=== PATIENT | female | born 1940 | race Caucasian/White ===

== ENCOUNTER 2018-07-31 21:05 | Emergency (ER) | payer BC, MEDICARE ==
[~2018-07-31] VITALS: Ht 157.5 cm; Wt 49.9 kg
[2018-07-31 22:38] VITALS: BP 143/66
== END 2018-07-31 22:38 | disposition home or self-care (01) ==
LOC: M.ERS 21:05
DX: R04.0 Epistaxis (principal)

== ENCOUNTER 2019-01-30 19:36 | Emergency (ER) | payer MEDICARE, BC ==
[~2019-01-30] VITALS: Ht 157.5 cm; Wt 51.3 kg
[2019-01-30] MEDS ORDERED: LISINOPRIL10 MG PO (19:45)
[2019-01-30] MEDS ORDERED: ZOCOR20 MG PO (19:57)
[2019-01-30] MEDS ORDERED: TRICOR145 MG PO (19:58)
[2019-01-30] MEDS ORDERED: FLONASE 0.05%50 MCG NASAL (19:59)
[2019-01-30 20:16] LABS: ABSOLUTE BASOPHILS 0.1 thou/uL (0.0-0.2); ABSOLUTE EOSINOPHILS 0.1 thou/uL (0.0-0.7); ABSOLUTE LYMPHOCYTES 2.1 thou/uL (0.8-5.3); ABSOLUTE MONOCYTES 0.8 thou/uL (0.0-1.2); ABSOLUTE NEUTROPHILS 7.6 thou/uL (1.6-8.1); BASOPHILS 0.5 %; EOSINOPHILS 1.1 %; HEMATOCRIT 40.7 % (37.0-47.0); HEMOGLOBIN 13.8 gm/dL (12.0-15.0); LYMPHOCYTES 19.9 %; MCH 30.1 pg (26.0-34.0); MCHC 33.9 g/dL (28.0-37.0); MCV 88.9 fL (80.0-100.0); MONOCYTES 7.3 %; MPV 7.8 fl. (7.2-11.1); NUCLEATED RBCS 0 /100WBC; PLATELET COUNT* 304 thou/uL (150-400); POLYS 71.2 %; RBC 4.58 mil/uL (4.20-5.00); RDW-CV 13.5 % (10.5-14.5); WBC 10.6 thou/uL (4.0-11.0)
[2019-01-30 20:21] LABS: ANION GAP 11 mmol/L (7-16); BUN 16 mg/dL (7-18); CALCIUM 9.1 mg/dL (8.5-10.1); CHLORIDE 93 mmol/L (98-107); CO2 24 mmol/L (21-32); CREATININE 0.6 mg/dL (0.6-1.3); GLUCOSE 106 mg/dL (70-99); POTASSIUM 4.6 mmol/L (3.5-5.1); SODIUM 128 mmol/L (136-145)
[2019-01-30 20:32] LABS: ALKALINE PHOSPHATASE 78 U/L (46-116); NT-PRO BRAIN NAT PEPTIDE 200 pg/mL (<300); SGOT 28 U/L (15-37); SGPT 25 U/L (30-65); TOTAL BILIRUBIN 0.6 mg/dL (<0.1-1.0); TOTAL PROTEIN 7.5 g/dL (6.4-8.2); TROPONIN-I LEVEL <0.06 ng/mL (<0.06)
[2019-01-30] MEDS ORDERED: PREDNISONE 20 M20 M1 PO (21:02)
[2019-01-30] MEDS ORDERED: PROMETH-CODEIN 65 ML PO (21:02)
[2019-01-30] MEDS ORDERED: ZPAK PO (21:02)
[2019-01-30 21:21] VITALS: BP 132/69
--- NOTE | 2019-01-31 10:55 | EKG ---
[place] [address] ELECTROCARDIOGRAM REPORT Name: STACIE SUÁREZ [id number] Admission: 01/30/19 Attend Phys: Discharge: 01/30/19 Date of : 38 Report #: [id number] THIS REPORT FOR: //name// [facility] ED Test Date: 2019-01-30 Test Time: 19:54:04 Pat Name: STACIE SUÁREZ Department: Room: Gender: F Benefit Director: GEO : 1940 Requested By: Murali Christianson Order Number: [id number] MD: Duran Garcia Measurements Intervals [place] Rate: 56 P: 68 [place]: 154 QRS: 50 QRSD: 128 T: 59 QT: 435 QTc: 420 Interpretive Statements Sinus bradycardia Right bundle branch block No previous ECG available for comparison Electronically Signed On 01-31-2019 10:54:45 CDT by Duran Garcia [email or web address] <ELECTRONICALLY SIGNED> By: Duran Garcia MD, [facility] 01/31/19 1054 53 53 Duran Garcia MD, FACC /EPI
== END 2019-01-30 21:31 | disposition home or self-care (01) ==
LOC: M.ERS 19:36
PROVIDERS: Family Medicine
DX: J40 Bronchitis, not specified as acute or chronic (principal)

== ENCOUNTER 2019-09-17 19:42 | Inpatient (IN) | payer MEDICARE, BC ==
[~2019-09-17] VITALS: Ht 157.5 cm; Wt 51.1 kg
[~2019-09-17 19:42] MED LIST: FLONASE 0.05%50 MCG NASAL; LISINOPRIL10 MG PO; PREDNISONE 20 M20 M1 PO; PROMETH-CODEIN 65 ML PO; TRICOR145 MG PO; ZOCOR20 MG PO; ZPAK PO
[2019-09-17 19:48] VITALS: BP 134/46
[2019-09-17] MEDS ORDERED: TESSALON PERLE100 M1 PO (19:55)
[2019-09-17 20:12] LABS: HEMATOCRIT 35.4 % (37.0-47.0); HEMOGLOBIN 11.8 gm/dL (12.0-15.0); MCH 29.7 pg (26.0-34.0); MCHC 33.3 g/dL (28.0-37.0); MCV 89.2 fL (80.0-100.0); MPV 8.1 fl. (7.2-11.1); NUCLEATED RBCS 0 /100WBC; PLATELET COUNT* 288 thou/uL (150-400); RBC 3.97 mil/uL (4.20-5.00); RDW-CV 14.1 % (10.5-14.5); WBC 17.1 thou/uL (4.0-11.0)
[2019-09-17 20:16] LABS: INR 1.1; PROTIME 11.4 Seconds (9.20-11.50)
[2019-09-17 20:17] LABS: CALCIUM 8.2 mg/dL (8.5-10.1); CREATININE 0.8 mg/dL (0.6-1.3); POTASSIUM 3.9 mmol/L (3.5-5.1)
[2019-09-17 20:28] LABS: ALBUMIN 3.3 g/dL (3.4-5.0); TOTAL BILIRUBIN 0.4 mg/dL (<0.1-1.0); TOTAL PROTEIN 6.6 g/dL (6.4-8.2)
[2019-09-17 20:32] LABS: INFLUENZA A ANTIGEN Negative (Negative); INFLUENZA B ANTIGEN Negative (Negative)
[2019-09-17 20:50] LABS: ABSOLUTE LYMPHOCYTES 1.2 thou/uL (0.8-5.3); ABSOLUTE MONOCYTES 0.9 thou/uL (0.0-1.2)
[2019-09-17 20:51] LABS: PLATELET ESTIMATE ADEQUATE
[2019-09-17 22:00] LABS: URINE BILIRUBIN NEGATIVE (Negative); URINE BLOOD 1+ (Negative); URINE CLARITY CLEAR; URINE COLOR YELLOW; URINE GLUCOSE-RANDOM NEGATIVE (Negative); URINE KETONES NEGATIVE (Negative); URINE LEUKOCYTES-REFLEX 1+ (Negative); URINE NITRITE-REFLEX NEGATIVE (Negative); URINE PROTEIN NEGATIVE (Negative); URINE SPECIFIC GRAVITY 1.015 (1.005-1.030); URINE UROBILINOGEN 0.2 E.U./dl (0.2-1.0)
[2019-09-17 22:16] LABS: BACTERIA-REFLEX >30 Many /HPF (None Seen); CASTS None Seen /LPF (None Seen); CRYSTALS None Seen /LPF (None Seen); MUCUS 4-6 Moderate strn/LPF (None Seen); SQUAMOUS 4-10 Moderate /LPF (0-3); URINE RBC 3-10 Few /HPF (0-2); URINE WBC-REFLEX 6-15 Few /HPF (0-5); WBC CLUMPS Few (None Seen)
[2019-09-18] VITALS (17 sets, daily range): BP systolic 93–129; BP diastolic 38–58
[2019-09-18 08:20] LABS: HEMATOCRIT 33.7 % (37.0-47.0); HEMOGLOBIN 11.3 gm/dL (12.0-15.0); MCH 30.2 pg (26.0-34.0); MCHC 33.5 g/dL (28.0-37.0); MCV 90.1 fL (80.0-100.0); MPV 8.2 fl. (7.2-11.1); RBC 3.74 mil/uL (4.20-5.00); RDW-CV 14.6 % (10.5-14.5); WBC 16.5 thou/uL (4.0-11.0)
[2019-09-18 08:25] LABS: CALCIUM 7.3 mg/dL (8.5-10.1); CREATININE 0.7 mg/dL (0.6-1.3); POTASSIUM 3.5 mmol/L (3.5-5.1)
--- NOTE | 2019-09-18 12:21 | EKG ---
[place] [address] ELECTROCARDIOGRAM REPORT Name: STACIE SUÁREZ Room: [address] IN [facility].#: [id number] Admission: 09/17/19 Attend Phys: Sallie Almanza, Discharge: Date of : 38 Date of Service: 09/17/191950 Report #: [id number] THIS REPORT FOR: //name// [facility] ED Test Date: 2019-09-17 Test Time: 19:51:43 Pat Name: STACIE SUÁREZ Department: Room: [facility] Gender: F Title Processor: MD : 1940 Requested By: Karol Jorgensen Order Number: [id number] MD: Duran Garcia Measurements Intervals [place] Rate: 93 P: 78 CT: 135 QRS: 53 QRSD: 121 T: 57 QT: 331 QTc: 412 Interpretive Statements Sinus rhythm Right bundle branch block Compared to ECG 01/30/2019 19:54:04 Sinus bradycardia no longer present Electronically Signed On 09-18-2019 12:20:18 CONVEYOR CONSOLE OPERATOR by Duran Garcia [email or web address] <ELECTRONICALLY SIGNED> By: Duran Garcia MD, FAC 09/18/19 1220 50 50 Duran Garcia MD, [facility] /EPI
[2019-09-19 00:23] VITALS: BP 115/53
[2019-09-19 04:00] VITALS: BP 118/48
[2019-09-19 04:07] LABS: GLYCOHEMOGLOBIN (HGB A1C) 5.7 % (4.8-5.6)
[2019-09-19 05:26] LABS: HEMATOCRIT 29.8 % (37.0-47.0); HEMOGLOBIN 9.9 gm/dL (12.0-15.0); MCH 29.7 pg (26.0-34.0); MCHC 33.4 g/dL (28.0-37.0); MCV 88.9 fL (80.0-100.0); MPV 8.8 fl. (7.2-11.1); RBC 3.35 mil/uL (4.20-5.00); RDW-CV 14.3 % (10.5-14.5); WBC 13.4 thou/uL (4.0-11.0)
[2019-09-19 05:47] LABS: ALBUMIN 2.5 g/dL (3.4-5.0); CALCIUM 7.9 mg/dL (8.5-10.1); CREATININE 0.6 mg/dL (0.6-1.3); MAGNESIUM 1.9 mg/dL (1.8-2.4); POTASSIUM 3.6 mmol/L (3.5-5.1); TOTAL BILIRUBIN 0.2 mg/dL (<0.1-1.0); TOTAL PROTEIN 5.9 g/dL (6.4-8.2)
[2019-09-19 08:00] VITALS: BP 141/57
[2019-09-19 12:09] VITALS: BP 132/57
[2019-09-19 16:38] LABS: HEMATOCRIT 30.9 % (37.0-47.0); HEMOGLOBIN 10.4 gm/dL (12.0-15.0); MCH 29.6 pg (26.0-34.0); MCHC 33.5 g/dL (28.0-37.0); MCV 88.2 fL (80.0-100.0); MPV 8.4 fl. (7.2-11.1); RBC 3.51 mil/uL (4.20-5.00); RDW-CV 14.2 % (10.5-14.5); WBC 13.5 thou/uL (4.0-11.0)
[2019-09-19 16:43] LABS: CALCIUM 8.4 mg/dL (8.5-10.1); CREATININE 0.5 mg/dL (0.6-1.3)
[2019-09-19 16:48] LABS: ALBUMIN 2.6 g/dL (3.4-5.0); TOTAL BILIRUBIN 0.2 mg/dL (<0.1-1.0); TOTAL PROTEIN 6.2 g/dL (6.4-8.2)
[2019-09-19 16:52] LABS: APTT 33.4 Seconds (25.0-31.3); INR 1.1; PROTIME 10.9 Seconds (9.20-11.50)
[2019-09-19 17:26] VITALS: BP 123/58
[2019-09-19 20:00] VITALS: BP 124/48
[2019-09-19 21:28] LABS: CHOLESTEROL 139 mg/dL (<200); HDL CHOLESTEROL 42 mg/dL (>40); LDL CHOLESTEROL 78 mg/dL (<100); SERUM ASSESSMENT Clear; TC:HDL 3.3 Ratio (Not establshd); TRIGLYCERIDE 97 mg/dL (<150); VLDL 19 mg/dL (<40)
[2019-09-20] VITALS: BP 132/62
[2019-09-20 04:00] VITALS: BP 129/52
[2019-09-20 05:34] LABS: HEMATOCRIT 30.4 % (37.0-47.0); HEMOGLOBIN 10.3 gm/dL (12.0-15.0); MCH 29.9 pg (26.0-34.0); MCHC 33.7 g/dL (28.0-37.0); MCV 88.5 fL (80.0-100.0); MPV 8.4 fl. (7.2-11.1); RBC 3.44 mil/uL (4.20-5.00); RDW-CV 14.5 % (10.5-14.5); WBC 12.3 thou/uL (4.0-11.0)
[2019-09-20 05:48] LABS: ALBUMIN 2.5 g/dL (3.4-5.0); CALCIUM 8.2 mg/dL (8.5-10.1); CREATININE 0.6 mg/dL (0.6-1.3); MAGNESIUM 2.1 mg/dL (1.8-2.4); POTASSIUM 4.1 mmol/L (3.5-5.1); TOTAL BILIRUBIN 0.1 mg/dL (<0.1-1.0); TOTAL PROTEIN 5.8 g/dL (6.4-8.2)
[2019-09-20 08:00] VITALS: BP 144/56
[2019-09-20 11:30] VITALS: BP 125/59
[2019-09-20 16:22] VITALS: BP 144/64
--- NOTE | 2019-09-20 16:32 | EKG ---
[place] [address] ELECTROCARDIOGRAM REPORT Name: STACIE SUÁREZ Room: [address] ADM IN .R.#: [id number] Admission: 09/17/19 Attend Phys: Sallie Almanza, Discharge: Date of : 38 Date of Service: 09/19/19 1639 Report #: [id number] THIS REPORT FOR: //name// [facility] Test Date: 2019-09-19 Test Time: 16:39:31 Pat Name: STACIE SUÁREZ Department: Room: [address] Gender: F Instrument Calibrator: DORIS : 1940 Requested By: Sallie Almanza Order Number: [id number] Merlyn MD: Duran Garcia Measurements Intervals [place] Rate: 69 P: 67 GA: 138 QRS: 48 QRSD: 120 T: 37 QT: 410 QTc: 440 Interpretive Statements Sinus rhythm IVCD, consider atypical RBBB Compared to ECG 09/17/2019 19:51:43 No significant changes Electronically Signed On 09-20-2019 16:31:37 SHEET CUTTING OPERATOR by Duran Garcia [email or web address] <ELECTRONICALLY SIGNED> By: Duran Garcia MD, FACC 09/20/19 1631 1639 1639 Duran Garcia MD, FAC /EPI
--- NOTE | 2019-09-20 16:37 | 2DMMODE ---
[place] [address] 2 D/M-MODE ECHOCARDIOGRAM Name: STACIE SUÁREZ KWAME Room: [address] IN [facility]#: [id number] Admission: 09/17/19 Attend Phys: Sallie Almanza, Discharge: Date of : 38 Date of Service: 09/20/19 1636 Report #: [id number] THIS REPORT FOR: cc: Becca Rogers Tonja K FNP Liston, Michael J. MD [facility] ~ APPROVED REPORT Study performed: 09/20/2019 12:58:11 EXAM: Comprehensive 2D, Doppler, and color-flow Echocardiogram Patient Location: In-Patient Room #: 201 Status: routine BSA: 1.54 HR: 79 bpm BP: 144/56 mmHg Rhythm: NSR Other Information Study Quality: Good Indications CVA/TIA Echo Enhancing Agent Indication: Rule out Shunt Agent(s) / Amount(s) Used: Agitated Saline 10 cc 2D Dimensions IVSd: 9.12 (7-11mm) LVOT Diam: 18.46 (18-24mm) LVDd: 41.87 mm PWd: 9.63 (7-11mm) Ascending Ao: 26.17 (22-36mm) LVDs: 24.84 (25-40mm) Aortic Root: 28.06 mm Volumes Left Atrial Volume (Systole) LA ESV Index: 31.80 mL/m2 Aortic Valve AoV Peak Elgin.: 1.55 m/s AO Peak Gr.: 9.64 mmHg LVOT Max P.59 mmHg AO Mean Gr.: 4.81 mmHg LVOT Mean P.83 [place] [address] 2 D/M-MODE ECHOCARDIOGRAM Name: STACIE SUÁREZ [facility] Room: [address] IN .R.#: [id number] Admission: 09/17/19 Attend Phys: Sallie Almanza, Discharge: Date of : 38 Date of Service: 09/20/19 1636 Report #: [id number] LVOT Max V: 1.28 m/s AO V2 VTI: 31.14 cm LVOT Mean V: 0.76 m/s CHICA (VTI): 2.25 cm2 LVOT V1 VTI: 26.18 cm Mitral Valve E/A Ratio: 1.14 MV Decel. Time: 207.19 ms MV E Max Elgin.: 1.07 m/s MV PHT: 60.09 ms MVA (PHT): 3.66 cm2 TDI E/Lateral E': 8.92 E/Medial E': 8.92 Medial E' Elgin.: 0.12 m/s Lateral E' Elgin.: 0.12 m/s Pulmonary Valve PV Peak Elgin.: 1.18 m/s PV Peak Gr.: 5.54 mmHg Tricuspid Valve RAP Estimate: 5.00 mmHg TR Peak Gr.: 24.62 mmHg RVSP: 29.00 mmHg PA Pressure: 29.00 mmHg Left Ventricle The left ventricle is normal size. There is normal LV segmental wall motion. There is normal left ventricular wall thickness. Left ventricular systolic function is normal. LVEF is 60-65%. Transmitral Doppler flow pattern suggests impaired LV relaxation. Right Ventricle The right ventricle is normal size. The right ventricular systolic function is normal. Atria The left atrium size is normal. The interatrial septum is intact with no evidence for an atrial septal defect. The right atrium size is normal. Aortic Valve The aortic valve is normal in structure. No aortic regurgitation is present. There is no aortic valvular stenosis. Mitral Valve There is mitral annular calcification. Trace mitral regurgitation. No evidence of mitral [place] [address] 2 D/M-MODE ECHOCARDIOGRAM Name: STACIE SUÁREZ [facility] Room: [address] IN .R.#: [id number] Admission: 09/17/19 Attend Phys: Sallie Almanza, Discharge: Date of : 38 Date of Service: 09/20/19 1636 Report #: [id number] Tricuspid Valve The tricuspid valve is normal in structure. Trace tricuspid regurgitation. No pulmonary hypertension. Pulmonic Valve The pulmonary valve is normal in structure. There is no pulmonic valvular regurgitation. Great Vessels The aortic root is normal in size. IVC is normal in size and collapses >50% with inspiration. Pericardium There is no pericardial effusion. <Conclusion> The left ventricle is normal size. There is normal left ventricular wall thickness. Left ventricular systolic function is normal. LVEF is 60-65%. Transmitral Doppler flow pattern suggests impaired LV relaxation. The interatrial septum is intact with no evidence for an atrial septal defect. Trace mitral regurgitation. Trace tricuspid regurgitation. No pulmonary hypertension. IVC is normal in size and collapses >50% with inspiration. <ELECTRONICALLY SIGNED> By: Barrett Gottlieb MD, FACC 09/20/19 1636 1636 1636 Barrett Gottlieb MD, FACC /INF
[2019-09-20 20:00] VITALS: BP 139/64
[2019-09-21 00:24] VITALS: BP 119/62
[2019-09-21 08:00] VITALS: BP 143/68
[2019-09-21 12:00] VITALS: BP 110/59
[2019-09-21 13:32] VITALS: BP 115/74
[2019-09-21 16:00] VITALS: BP 113/60
[2019-09-21 20:00] VITALS: BP 147/60
[2019-09-21 22:58] LABS: URINE BILIRUBIN NEGATIVE (Negative); URINE BLOOD NEGATIVE (Negative); URINE CLARITY CLEAR; URINE COLOR YELLOW; URINE GLUCOSE-RANDOM NEGATIVE (Negative); URINE KETONES NEGATIVE (Negative); URINE LEUKOCYTES NEGATIVE (Negative); URINE NITRITE NEGATIVE (Negative); URINE PROTEIN NEGATIVE (Negative); URINE SPECIFIC GRAVITY <= 1.005 (1.005-1.030); URINE UROBILINOGEN 0.2 E.U./dl (0.2-1.0)
[2019-09-22 00:14] VITALS: BP 133/67
[2019-09-22 04:49] VITALS: BP 124/59; BP 136/70
[2019-09-22 08:00] VITALS: BP 122/57
--- NOTE | 2019-09-22 08:56 | CON ---
[address] [address] CONSULTATION Name: STACIE SUÁREZ KWAME Room: [address] ADM IN M.R.#: [id number] Admission: 09/17/19 Attend Phys: Sallie Almanza MD Discharge: Date of : 38 Report #: [id number] THIS REPORT FOR: //name// cc: Becca Rogers Tonja K FNP ~ THIS REPORT FOR: //name// CC: Sallie Rogers DATE OF SERVICE: 09/21/2019 CARDIOLOGY CONSULTATION HISTORY OF PRESENT ILLNESS: The patient is a 78-year-old white female who I was asked to see in the hospital today after she had an episode of atrial fibrillation. The history is obtained from the patient as well as her family who is present. She has no previous history of heart disease. She stays fairly active. She has had no previous cardiac evaluation. She was admitted here to [facility] 4 days ago. She was brought to the hospital by family members. She has been coughing and running a fever. She felt weak. She was recently given Symbicort. Because of increasing shortness of breath, she was admitted. She was felt to have pneumonia. She was started on antibiotics. She subsequently developed confusion. She was found to have evidence of stroke. She was noted to have intermittent atrial fibrillation. I was asked to see her for further evaluation and treatment. PAST MEDICAL HISTORY: Otherwise, she has had no surgical procedures. She does have a history of hypertension and hyperlipidemia. MEDICATIONS: On admission consist of lisinopril, simvastatin, fenofibrate. ALLERGIES: SHE HAS AN ALLERGY TO ROCEPHIN AND FLU SHOTS AND IV CONTRAST. FAMILY HISTORY: Negative for heart disease. SOCIAL HISTORY: She is . She and her live in [place], [place]. Her is a patient of mine as well. She smokes half pack of cigarettes a day. No alcohol abuse. REVIEW OF SYSTEMS: She has had no history of stroke in the past. No history of asthma, liver disease, GI bleeding. She has had nosebleeds. No kidney disease. No cancer. No psychiatric illness. PHYSICAL EXAMINATION: [place] [address] CONSULTATION Name: STACIE SUÁREZ KWAME Room: [address] IN [facility]#: [id number] Admission: 09/17/19 Attend Phys: Sallie Almanza MD Discharge: Date of : 38 Report #: [id number] GENERAL: Revealed an elderly frail appearing female sitting in a chair. She appeared in no acute distress. VITAL SIGNS: She had a blood pressure 130/60, pulse is 120 and irregular and respirations nonlabored. She is afebrile. HEENT: She was anicteric. Conjunctivae are pink. Mucous membranes moist. NECK: Veins nondistended. No carotid bruits. Neck supple. CHEST: Clear to auscultation. CARDIOVASCULAR: Irregular, tachycardia. ABDOMEN: Soft. EXTREMITIES: Had no edema. SKIN: Cool and dry. NEUROLOGIC: Nonfocal. RADIOLOGICAL DATA: Her ECG on admission showed a sinus rhythm with a right bundle branch block. Currently, ECG shows atrial fibrillation with rapid ventricular response rate. Her workup so far, she has had an echocardiogram that showed normal left ventricular function with ejection fraction of 60%. No evidence of a PFO. She actually had a nuclear stress test a year ago here at [facility] because of risk factors that showed no evidence of ischemia with an ejection fraction of 80%. Her workup so far, she had a portable chest x-ray that showed left upper lobe infiltrate consistent with pneumonia. CT scan of the head, after she had an episode of confusion, showed atrophy, no acute infarction, although MRI of the brain without contrast showed lacunar infarction in the left frontal area. MRA of the carotid arteries showed no significant stenosis. LABORATORY WORK: Sodium 142, creatinine 0.6. Troponin 0.06. BNP 503, cholesterol 139, triglyceride 97, HDL 42, LDL 78. TSH 2.5. Her white blood cell count 12.3, hemoglobin 10.3, hematocrit 30.4. IMPRESSION AND RECOMMENDATIONS: 1. Paroxysmal atrial fibrillation. I would consider starting sotalol. 2. Evidence of cerebral infarction. Suspect embolic event from atrial fibrillation. I would recommend starting Eliquis. 3. Hypertension. The patient is on IGNACIO inhibitor. 4. Dyslipidemia. The patient is on a statin drug. 5. Tobacco abuse. 6. History of CONTRAST ALLERGY. 7. Transient confusion. <ELECTRONICALLY SIGNED> By: Duran Garcia MD, [facility] 09/22/19 0856 1303 0051Dmatthew Garcia MD, FACC /nt
--- NOTE | 2019-09-22 09:16 | EKG ---
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: 1886 : 1940 Requested By: Sallie Almanza Order Number: [id number] Merlyn MD: Duran Garcia Measurements Intervals [place] Rate: 135 P: SC: QRS: 185 QRSD: 110 T: 41 QT: 310 QTc: 465 Interpretive Statements Atrial fibrillation Borderline low voltage, extremity leads incomplete RBBB Compared to ECG 09/19/2019 16:39:31 Sinus rhythm no longer present Electronically Signed On 09-22-2019 9:15:45 NEWS CLIPPING CUTTER by Duran Garcia [email or web address] <ELECTRONICALLY SIGNED> By: Duran Garcia MD, FAC 09/22/19 0915 1227 1227 Duran Garcia MD, [facility] /EPI
[2019-09-22 12:00] VITALS: BP 115/56
--- NOTE | 2019-09-22 12:52 | EKG ---
[place] [address] ELECTROCARDIOGRAM REPORT Name: STACIE SUÁREZ Room: [address] ADM [place] .R.#: [id number] Admission: 09/17/19 Attend Phys: Sallie Almanza, Discharge: Date of : 38 Date of Service: 09/22/19 1103 Report #: [id number] THIS REPORT FOR: //name// [facility] Test Date: 2019-09-22 Test Time: 11:03:59 Pat Name: STACIE SUÁREZ Department: Room: [address] Gender: F Civil Preparedness Coordinator: : 1940 Requested By: Duran Garcia Order Number: [id number] Merlyn MD: Duran Garcia Measurements Intervals [place] Rate: 57 P: 68 [place]: 135 QRS: 60 QRSD: 129 T: 58 QT: 454 QTc: 442 Interpretive Statements Sinus rhythm Right bundle branch block Compared to ECG 09/21/2019 12:27:26 Atrial fibrillation no longer present Electronically Signed On 09-22-2019 12:51:00 LEAD RADIOLOGIC TECHNOLOGIST by Duran Garcia [email or web address] <ELECTRONICALLY SIGNED> By: Duran Garcia MD, FACC 09/22/19 1251 1103 1103 Duran Garcia MD, [facility] /EPI
[2019-09-22 16:00] VITALS: BP 111/48
[2019-09-22 20:00] VITALS: BP 123/50
[2019-09-23 00:12] VITALS: BP 127/86
[2019-09-23 04:38] VITALS: BP 131/50
[2019-09-23 08:00] VITALS: BP 106/52
--- NOTE | 2019-09-23 09:49 | EKG ---
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
[2019-09-23] MEDS ORDERED: PROAIR HFA8.5 GM INH (10:26)
[2019-09-23] MEDS ORDERED: ADULT LOW DOSE81 MG PO (10:26)
[2019-09-23] MEDS ORDERED: LIPITOR40 MG PO (10:26)
[2019-09-23] MEDS ORDERED: BENZONATATE100 MG PO (10:26)
[2019-09-23] MEDS ORDERED: SORINE 80 MG TA80 M1 PO (10:26)
[2019-09-23] MEDS ORDERED: LEVAQUIN 500 M500 M3 PO (10:26)
[2019-09-23] MEDS ORDERED: ELIQUIS5 MG PO (10:26)
[2019-09-23 11:33] VITALS: BP 114/76
[2019-09-23 12:10] VITALS: BP 114/76
== END 2019-09-23 13:12 | disposition home or self-care (01) | DRG 177 ==
LOC: M.ERS 19:42 → M.TBA-ER 21:18 → M.ERS 21:18 → M.TBA-ER 22:58 → M.ERS 22:58 → M.2W 23:38 → M.TBA-ER 23:38 → M.ICU 09-18 01:38 → M.2W 09-18 08:50
PROVIDERS: Emergency Medicine; Psychiatry & Neurology Neurology; ADMIT Internal Medicine
DX: J15.6 Pneumonia due to other Gram-negative bacteria (principal); I63.81 Other cerebral infarction due to occlusion or stenosis of small artery; J96.01 Acute respiratory failure with hypoxia; R65.11 Systemic inflammatory response syndrome (SIRS) of non-infectious origin with acute organ dysfunction; F03.91 Unspecified dementia, unspecified severity, with behavioral disturbance; J44.1 Chronic obstructive pulmonary disease with (acute) exacerbation; N39.0 Urinary tract infection, site not specified; J44.0 Chronic obstructive pulmonary disease with (acute) lower respiratory infection; G93.40 Encephalopathy, unspecified; I48.0 Paroxysmal atrial fibrillation; I95.9 Hypotension, unspecified; E78.5 Hyperlipidemia, unspecified; F17.210 Nicotine dependence, cigarettes, uncomplicated; T38.0X5A Adverse effect of glucocorticoids and synthetic analogues, initial encounter; I10 Essential (primary) hypertension; Z79.899 Other long term (current) drug therapy; Z88.1 Allergy status to other antibiotic agents; Z88.7 Allergy status to serum and vaccine; Z88.8 Allergy status to other drugs, medicaments and biological substances; Z91.041 Radiographic dye allergy status; Y92.89 Other specified places as the place of occurrence of the external cause

== ENCOUNTER → 2020-10-02 | Outpatient (CLI) | payer MEDICARE, BC ==
[~2020-10-02] MED LIST changes: +ADULT LOW DOSE81 MG PO; +BENZONATATE100 MG PO; +DIPHENHIST50 MG PO; +ELIQUIS5 MG PO; +LEVAQUIN 500 M500 M3 PO; +LIPITOR40 MG PO; +MELATONIN5 MG PO; +MUCINEX600 MG PO; +PROAIR HFA8.5 GM INH; +SORINE 80 MG TA80 M1 PO; +STOOL SOFTENER1 EAC2 PO; +TESSALON PERLE100 M1 PO
--- NOTE | 2020-10-02 15:46 | 2DMMODE ---
[place] [address] 2 D/M-MODE ECHOCARDIOGRAM Name: STACIE SÁUREZ Room: [facility]#: [id number] Admission: 10/02/20 Attend Phys: Lesia Purcell Discharge: Date of : 38 Date of Service: 10/02/20 1546 Report #: [id number] THIS REPORT FOR: cc: Becca Rogers Tonja K FNP Liston, Michael J. MD [facility] ~ APPROVED REPORT Study performed: 10/02/2020 12:41:19 EXAM: Comprehensive 2D, Doppler, and color-flow Echocardiogram Patient Location: Out-Patient BSA: 1.48 HR: 62 bpm BP: 122/78 mmHg Other Information Study Quality: Good Indications Atrial Fibrillation 2D Dimensions IVSd: 9.25 (7-11mm) LVOT Diam: 20.51 (18-24mm) LVDd: 35.60 mm PWd: 9.12 (7-11mm) Ascending Ao: 24.84 (22-36mm) LVDs: 20.06 (25-40mm) Aortic Root: 23.78 mm Volumes Left Atrial Volume (Systole) LA ESV Index: 20.60 mL/m2 Aortic Valve AoV Peak [place]gin.: 0.99 m/s AO Peak Gr.: 3.92 mmHg LVOT Max P.26 mmHg AO Mean Gr.: 2.17 mmHg LVOT Mean P.67 mmHg LVOT Max V: 1.03 m/s AO V2 VTI: 22.26 cm LVOT Mean V: 0.57 m/s CHICA (VTI): 3.80 cm2 LVOT V1 VTI: 25.62 cm Mitral Valve E/A Ratio: 0.98 [place] [address] 2 D/M-MODE ECHOCARDIOGRAM Name: STACIE SUÁREZ KWAME [id number] Admission: 10/02/20 Attend Phys: Lesia Purcell Discharge: Date of : 38 Date of Service: 10/02/20 1546 Report #: [id number] MV Decel. Time: 232.06 ms MV E Max [place].: 0.81 m/s MV PHT: 67.30 ms MVA (PHT): 3.27 cm2 TDI E/Lateral E': 8.10 E/Medial E': 10.13 Medial E' Elgin.: 0.08 m/s Lateral E' [place].: 0.10 m/s Pulmonary Valve PV Peak [place].: 1.02 m/s PV Peak Gr.: 4.19 mmHg Tricuspid Valve RAP Estimate: 5.00 mmHg TR Peak Gr.: 16.86 mmHg RVSP: 21.86 mmHg PA Pressure: 21.86 mmHg Left Ventricle The left ventricle is normal size. There is normal LV segmental wall motion. There is normal left ventricular wall thickness. Left ventricular systolic function is normal. LVEF is 60-65%. Grade I - abnormal relaxation pattern. Right Ventricle The right ventricle is normal size. The right ventricular systolic function is normal. Atria The left atrium size is normal. The right atrium size is normal. Aortic Valve The aortic valve is normal in structure. No aortic regurgitation is present. There is no aortic valvular stenosis. Mitral Valve There is mitral annular calcification. There is no mitral valve regurgitation noted. No evidence of mitral valve stenosis. Tricuspid Valve The tricuspid valve is normal in structure. Mild tricuspid regurgitation. Pulmonic Valve The pulmonary valve is normal in structure. [place] [address] 2 D/M-MODE ECHOCARDIOGRAM Name: STACIE SUÁREZ [facility] Room: [facility]#: [id number] Admission: 10/02/20 Attend Phys: Lesia Purcell Discharge: Date of : 38 Date of Service: 10/02/20 1546 Report #: [id number] valvular regurgitation. Great Vessels The aortic root is normal in size. IVC is normal in size and collapses >50% with inspiration. Pericardium There is no pericardial effusion. <Conclusion> The left ventricle is normal size. There is normal left ventricular wall thickness. Left ventricular systolic function is normal. LVEF is 60-65%. Grade I - abnormal relaxation pattern. There is mitral annular calcification. Mild tricuspid regurgitation. IVC is normal in size and collapses >50% with inspiration. <ELECTRONICALLY SIGNED> By: Barrett Gottlieb MD, [facility] 10/02/20 1546 1546 1546 Barrett Gottlieb MD, FACC /INF
--- NOTE | 2020-10-02 17:42 | CARDNUC ---
[place] [address] CARDIAC NUCLEAR IMAGING REPORT Name: STACIE SUÁREZ Room: [facility]#: [id number] Admission: 10/02/20 Attend Phys: Lesia Purcell Discharge: Date of : 38 Date of Service: 10/02/20 1742 Report #: [id number] THIS REPORT FOR: cc: Becca Rogers Tonja K FNP Liston, Michael J. MD [facility] ~ APPROVED REPORT Imaging Protocol: Stress Tc-99m/Rest Tc-99m 1 day Study performed: 10/02/2020 14:00:00 Indication: AGUSTIN, Bradycardia, ABN EKG. Patient Location: Out-Patient Stress Tech: Priscilla Landrum Stress Nurse: Winter Huber RN Ht: 5 ft 0 in Wt: 115 lbs BSA: 1.48 m2 BMI: 22.45 Medical History Medical History: AGUSTIN, ABN EKG, RBBB, Simple chronic bronchitis, PAT, bradycardia, CVA-cognitive deficits/poor historian, palpitations, AFib, fatigue, weakness, pneumonia 2019, HTN, HLD, CAD, past smoker, family HX CAD, unsteady/unstable shuffled gait. Medications: Atorvastatin, Fenofibrate. Allergies: Prednisone, Benadryl, Rocephin, IV Steroids. Cardiac Risk Factors: Age, FHX of CAD, HTN, Hyperlipidemia, SOB, Past Smoker, PAT, RBBB, bradycardia, AFib. Previous Cardiac Procedures: None noted Pretest Chest Pain Characteristics: No chest pain Exercise History: Sedentary Physical Disabilities: HX CVA, AFib, Unstable shuffled gait/weakness. Meds Held (24 hrs): None Resting Data Rest SPECT myocardial perfusion imaging was performed in supine position 30 minutes following the intravenous injection of 10.8 mCi of Tc-99m Sestamibi. Time of rest injection: 14:05 The images were gated to evaluate regional wall motion and calculate left ventricular ejection fraction. Administration Route: IV Administration Site: [place] [address] CARDIAC NUCLEAR IMAGING REPORT Name: STACIE SUÁREZ [id number] Admission: 10/02/20 Attend Phys: Lesia Purcell Discharge: Date of : 38 Date of Service: 10/02/20 1742 Report #: [id number] Pharmacologic Stress Pharmacologic stress test was performed by injecting Regadenoson 0.4 mg IV push over 10-15 seconds immediately followed by the intravenous injection of 33.8 mCi of Tc-99m Sestamibi. Time of stress injection: 15:45 Administration Route: IV Administration Site: Right Wrist Heart Rate at time of stress injection: 115 bpm. Gated Stress SPECT was performed 40 minutes after stress injection. The images were gated to evaluate regional wall motion and calculate left ventricular ejection fraction. Prone imaging was performed. Stress Test Details Stress Test: Pharmacologic stress testing performed using 0.4 mg of regadenoson per 5 mL given IV over 10 seconds. Reason for pharmacologic stress test: HX CVA, AFib, Unstable shuffled gait/weakness.. HR Max Heart Rate (APMHR): 140 bpm Resting HR: 78 bpm Target HR (85% APMHR): 119 bpm Max HR Achieved: 115 bpm % of APMHR: 82 Recovery HR: 98 bpm BP Resting BP: 164/87 mmHg Max BP: 183/81 mmHg Recovery BP: 167/69 mmHg ECG Resting ECG: Sinus rhythm with right bundle branch block Stress ECG: Sinus tachycardia with right bundle branch block ST Change: None Arrhythmia: Occasional PAC Recovery ECG: Sinus rhythm with right bundle branch block Recovery ST Change: None Recovery Arrhythmia: Occasional PAC Clinical Reason for Termination: Completed protocol Stress Symptoms: Dizziness, [place] [address] CARDIAC NUCLEAR IMAGING REPORT Name: STACIE SUÁREZ Room: [facility] [place]#: [id number] Admission: 10/02/20 Attend Phys: Lesia Purcell Discharge: Date of : 38 Date of Service: 10/02/20 1742 Report #: [id number] Exercise duration: 00 min 00 sec Exercise capacity: 1.00 METs The patient tolerated Lexiscan infusion without significant cardiac symptoms. Nurse Comments An 79 year old female presented for a sitting Lexiscan Nuclear Stress Test. Test well tolerated. Recovery unremarkable. Patient was stable and stated she felt good when escorted via wheelchair to Nuclear Medicine for imaging. Stress ECG Conclusion The baseline twelve-lead EKG shows sinus rhythm with occasional premature atrial contraction. There are no significant ST segment or T wave abnormalities. There is an underlying right bundle branch block. EKGs obtained during and post Lexiscan stress show sinus rhythm and sinus tachycardia with no significant ST segment changes when compared to baseline. Patient continued to have occasional PACs. Study Quality Study: Good Artifact: No artifact Study Data At rest, the left ventricular ejection fraction was 72%.. Post stress, the left ventricular ejection was 78%.. TID = 0.93. Perfusion There is universal uptake of the radioisotope on both rest and stress images. There were no defects to suggest infarct or ischemia. Wall Motion Normal left ventricular wall motion. Nuclear Conclusion ECG Findings: negative for ischemia Clinical Findings: negative for ischemia Nuclear Findings: negative for ischemia Exercise Capacity: not assessed Left Ventricular Function: normal Risk Study: low Perfusion images show no defect to suggest infarct or ischemia. Left ventricular systolic function is normal on gated studies. This [place] [address] CARDIAC NUCLEAR IMAGING REPORT Name: STACIE SUÁREZ Room: [facility] [place]#: [id number] Admission: 10/02/20 Attend Phys: Lesia Purcell Discharge: Date of : 38 Date of Service: 10/02/20 1742 Report #: [id number] <Conclusion> The baseline twelve-lead EKG shows sinus rhythm with occasional premature atrial contraction. There are no significant ST segment or T wave abnormalities. There is an underlying right bundle branch block. EKGs obtained during and post Lexiscan stress show sinus rhythm and sinus tachycardia with no significant ST segment changes when compared to baseline. Patient continued to have occasional PACs. <ELECTRONICALLY SIGNED> By: Barrett Gottlieb MD, FACC 10/02/201741 41 41 Barrett Gottlieb MD, FACC /INF
== END ==
LOC: M.CRD 11-25 14:25
PROVIDERS: ATTEND Internal Medicine
DX: I08.1 Rheumatic disorders of both mitral and tricuspid valves (principal); I48.0 Paroxysmal atrial fibrillation